=== PATIENT | male | born 1945 | race Caucasian/White ===

== ENCOUNTER → 2019-08-04 | Outpatient (CLI) | payer MEDICARE, OTHER ==
[2016-08-27 19:00] VITALS: BP 149/78
[~2019-08-04] MED LIST: DEXT15DR10 OP; [UNRECOGNIZED DRUG - CODE] OP; lisinopril; wellbutrin
--- NOTE | 2019-08-04 15:37 | RAD ---
CT brain without contrast. HISTORY: History of Mathur tumor 9 years ago, frontal headache CT scan of brain was done without contrast. There is complete opacification of the right frontal sinus. Remaining sinuses are clear. A skull fracture is not identified. Mastoids are normally aerated. There is mild atrophy. There is no intracranial hemorrhage or subdural hematoma. Ventricles are normal in size. There is no mass or shift of the midline. IMPRESSION: 1. Opacification of the right frontal sinus. 2. No intracranial hemorrhage or acute finding noted intracranially. PQRS Compliance Statement: One or more of the following individualized dose reduction techniques were utilized for this examination: 1. Automated exposure control 2. Adjustment of the mA and/or kV according to patient size 3. Use of iterative reconstruction technique Electronically signed by: Tristen Hedrick MD (08/04/2019 3:34 PM) [id number]
== END | disposition home or self-care (01) ==
LOC: CT 15:09
PROVIDERS: ATTEND Family Medicine
DX: J34.89 Other specified disorders of nose and nasal sinuses (principal)
CPT/HCPCS: 70450

== ENCOUNTER 2021-11-19 20:54 | Emergency (ER) | payer MEDICARE, OTHER ==
[~2021-11-19] VITALS: Ht 175.3 cm; Wt 108.0 kg
[2021-11-19 21:00] VITALS: BP 148/88
--- NOTE | 2021-11-19 21:22 | PHYS DOC ---
Past History Past Medical History: Depression, Hypertension (HARDIK LINARES APRN) Past Surgical History: Tonsillectomy (HARDIK LINARES APRN) Alcohol Use: Rarely Drug Use: None (HARDIK LINARES APRN) General Adult EDM: Chief Complaint: LACERATION/AVULSION HPI: HPI: Patient is a 76-year-old male who presents to the emergency department today for a laceration to his left second finger. Patient reports that he was cutting something with scissors and he cut it piece of his skin off. Wound is actively bleeding. He reports his tetanus shot was 3 years ago. He denies any decreased sensation to his extremity. (HARDIK LINARES APRN) Review of Systems: Review of Systems: Musculoskeletal: see HPI Integument:see HPI Neurologic see HPI (HARDIK LINARES APRN) Allergies: Allergies: Allergies Coded Allergies Type Severity Reaction Last Updated Verified No Known Drug Allergies 01/17/15 No (HARDIK LINARES APRN) Physical Exam: PE: Constitutional: Well developed, well nourished, no acute distress, non-toxic appearance. [] HENT: Normocephalic, atraumatic, bilateral external ears normal, oropharynx moist, no oral exudates, nose normal. [] Eyes: PERRL, EOMI, conjunctiva normal, no discharge. [] Neck: Normal range of motion, no stridor Cardiovascular: Normal peripheral perfusion Lungs & Thorax: Normal work of breathing, no tachypnea Abdomen: Soft and flat Skin: Warm, dry, no erythema, no rash. [] Back: No tenderness, normal range of motion Extremities: No tenderness, no cyanosis, no clubbing, ROM intact, no edema. [] Left second finger: 0.5cm Avulsion Laceration noted to side of patient's finger, no nailbed involvement, range of motion intact, neuro intact Neurologic: Alert and oriented X 3, normal motor function, normal sensory function, no focal deficits noted. [] Psychologic: Affect normal, judgement normal, mood normal. [] (HARDIK LINARES APRN) EKG: EKG: [] (HARDIK LINARES APRN) Radiology/Procedures: Radiology/Procedures: [] (HARDIK LINARES APRN) Heart Score: C/O Chest Pain: N/A Risk Factors: Risk Factors: DM, Current or recent (<one month) smoker, HTN, HLP, family history of CAD, obesity. Risk Scores: Score 0 - 3: 2.5% MACE over next 6 weeks - Discharge Home Score 4 - 6: 20.3% MACE over next 6 weeks - Admit for Clinical Observation Score 7 - 10: 72.7% MACE over next 6 weeks - Early Invasive Strategies (HARDIK LINARES APRN) Course & Med Decision Making: Course & Med Decision Making Pertinent Labs and Imaging studies reviewed. (See chart for details) [] Patient resents to the emergency department for an avulsion like laceration noted to side of left index finger. Laceration does not appear to require sutures but there is active bleeding. Gelfoam was placed on wound to help control bleeding and a dressing was placed. Patient is not having bleeding through Gelfoam at this time. Patient advised to continue wearing the dressing and follow-up with his primary care provider in 2 days for recheck. Patient educated on laceration care. I discussed with patient all findings and diagnostic testing as well as the need to follow-up with PCP for further evaluation and treatment or return to the ER if any new or worsening symptoms. Strict return precautions were also discussed at length. Patient voiced understanding and agreement with the plan. Patient is hemodynamically stable at the time of disposition. (HARDIK LINARES APRN) Course & Med Decision Making Did not see or evaluate patient. Did not discuss patient with [employer] APPRENTICE. Generally agree with M[employer] APPRENTICE's work-up and disposition per note (MAINE HAGAN MD) Dragon Disclaimer: Dragon Disclaimer: This electronic medical record was generated, in whole or in part, using a voice recognition dictation system. (HARDIK LINARES APRN) Departure Departure: Impression: Primary Impression: Laceration Disposition: HOME / SELF CARE / HOMELESS Condition: GOOD Referrals: PAULINE PEREZ MD (PCP) Patient Instructions: Laceration Care, Adult Additional Instructions: You are seen in the emergency department today for an avulsion type laceration. Please keep the area clean and dry. Keep the dressing in place for 2 days. You can apply Polysporin or bacitracin ointment to the site once you remove the dressing. Follow-up with your primary care provider within 2 days for a wound check. If you notice bleeding through the dressing that we placed please return to the ER. Monitor for any signs of infection which include redness, warmth, swelling or drainage. Return to the emergency department if you develop uncontrolled bleeding, increased pain, decreased range of motion or decreased sensation in your finger. HARDIK LINARES APRN November 19, 2021 21:22 MAINE HAGAN MD November 19, 2021 21:37
[2021-11-19] MEDS ORDERED: GELATIN SPONGE SIZE 12-7MM SPONGE. TP ONE (21:30)
== END 2021-11-19 21:35 | disposition home or self-care (01) ==
LOC: ER 20:54
DX: S61.211A Laceration without foreign body of left index finger without damage to nail, initial encounter (principal); I10 Essential (primary) hypertension; W27.2XXA Contact with scissors, initial encounter; Y93.89 Activity, other specified; Y92.89 Other specified places as the place of occurrence of the external cause; Y99.8 Other external cause status
CPT/HCPCS: 99282